=== PATIENT | female | born 1960 | race Caucasian/White ===

== ENCOUNTER 2022-07-11 17:52 | Emergency (ER) | payer MEDICARE, SELFPAY ==
--- NOTE | 2022-07-11 18:24 | ED_ITS ---
HPI - General Adult General Chief complaint: General Medical <Salena Warner CNP - Last Filed: 07/11/22 18:26> Stated complaint: elevated blood pressure sent from urgent care <Salena Warner CNP - Last Filed: 07/11/22 18:26> Time Seen by Provider: 07/11/22 21:39 <Salena Warner CNP - Last Filed: 07/11/22 18:26> Source: patient <Andrew Varela MD - Last Filed: 07/11/22 23:18> Mode of arrival: ambulatory <Andrew Varela MD - Last Filed: 07/11/22 23:18> Limitations: no limitations <Andrew Varela MD - Last Filed: 07/11/22 23:18> History of Present Illness HPI narrative: Patient with history of hypertension on lisinopril 40 mg for a while noticed her blood pressure on the higher side for last few times today was not feeling good with dizziness went to urgent care center blood pressure noted to be 187/87 in the ER patient blood pressure elevated to 194/92 patient is fairly compliant taking her medications every day <Andrew Varela MD - Last Filed: 07/11/22 23:18> Related Data Home medications: Previous Rx's Medication Instructions Recorded amlodipine 5 mg tablet (Norvasc) 5 mg PO DAILY #30 tabs 07/11/22 <Salena Warner CNP - Last Filed: 07/11/22 18:26> Allergies/adverse reactions: Allergies Allergy/AdvReac Type Severity Reaction Status Date / Time No Known Allergies Allergy Verified 07/11/22 18:24 <Salena Warner CNP - Last Filed: 07/11/22 18:26> Review of Systems Review of Systems: Yes all other systems are reviewed and are negative <Andrew Varela MD - Last Filed: 07/11/22 23:18> PMFSH Past Medical History Medical History: Medical History Accelerated essential hypertension Acid reflux <Salena Warner CNP - Last Filed: 07/11/22 18:26> Social History Social History: Social History Smoked in Last 30 Days: No Use of substances other than those prescribed or required for medical reasons: No Advance Directives: No Advance Directives Information Provided: No Patient : No <Salena Warner AMBIKA - Last Filed: 07/11/22 18:26> Physical Exam ED Vital Signs: Vital Signs - 24 hr 07/11/22 18:25 07/11/22 21:53 07/11/22 22:00 Temperature 98.4 F Pulse Rate 92 95 Respiratory Rate 18 20 Blood Pressure 187/87 H 194/92 H 181/93 H Pulse Oximetry 100 99 Oxygen Delivery Method Room Air Room Air 07/11/22 23:02 Temperature Pulse Rate 67 Respiratory Rate 12 Blood Pressure 140/65 H Pulse Oximetry 98 Oxygen Delivery Method Room Air BMI result Body Mass Index 40.9 <Salena Warner AMBIKA - Last Filed: 07/11/22 18:26> Vital Signs - 24 hr 07/11/22 18:25 07/11/22 21:53 07/11/22 22:00 Temperature 98.4 F Pulse Rate 92 95 Respiratory Rate 18 20 Blood Pressure 187/87 H 194/92 H 181/93 H Pulse Oximetry 100 99 Oxygen Delivery Method Room Air Room Air 07/11/22 23:02 Temperature Pulse Rate 67 Respiratory Rate 12 Blood Pressure 140/65 H Pulse Oximetry 98 Oxygen Delivery Method Room Air BMI result Body Mass Index 40.9 Appearance: Alert. Oriented X3. No acute distress. Eyes: PERRLA, No Nystagmus ENT: Pharynx normal. Oral Mucosa moist Neck: Normal inspection. Neck supple. CVS: Normal heart rate and rhythm. Pulses normal. Respiratory: No respiratory distress. Equal air entry bilateral, no wheezing/rales/rhonchi Abdomen: Soft and nontender. Bowel sounds are present, no mass palpable, no CVA tenderness Skin: Skin warm and dry. Normal skin color. Normal skin turgor. Extremities: No lower extremity edema. No calf tenderness Neuro: Oriented X 3. No motor deficit. No sensory deficit.No cerebellar signs , cranial nerves II-XII intact <Andrew Varela MD - Last Filed: 07/11/22 23:18> Course Course Course Narrative: This is an RME: Additional HPI, ROS, PE not included below will be deferred to primary provider. Patient is a 62-year-old female who presents emergency department with referral from urgent care. She presented initially for evaluation of dizziness/ lightheadedness a couple days ago. She had similar symptoms this morning, she is currently without any dizziness or complaints. She presented to urgent care today for evaluation, was found to have elevated blood pressure therefore referred to the ED. she is currently prescribed lisinopril 40 mg daily. Denies current dizziness, persistent headaches, vision changes, neck pain, neck stiffness, chest pain, shortness breath, difficulty breathing, nausea, vomiting, ABD pain. Plan: labs, EKG <Salena Warner CNP - Last Filed: 07/11/22 18:26> Medications Administered Discontinued Medications Generic Name Dose Route Start Last Admin Trade Name Freq PRN Reason Stop Dose Admin Amlodipine Besylate 5 mg 07/11/22 21:56 07/11/22 22:11 Amlodipine Besylate 5 Mg Tablet PO 07/11/22 21:57 5 mg ONCE ONE Administration Protocol <Salena Warner CNP - Last Filed: 07/11/22 18:26> Medications Administered Discontinued Medications Generic Name Dose Route Start Last Admin Trade Name Freq PRN Reason Stop Dose Admin Amlodipine Besylate 5 mg 07/11/22 21:56 07/11/22 22:11 Amlodipine Besylate 5 Mg Tablet PO 07/11/22 21:57 5 mg ONCE ONE Administration Protocol <Andrew Varela MD - Last Filed: 07/11/22 23:18> Medical Decision Making Medical Decision Making [facility] Narrative: Patient with uncontrolled hypertension Norvasc 5 mg was given blood pressure improved to 140/65 there is no end-organ damage when he just patient feeling much better will discharge patient home <Andrew Varela MD - Last Filed: 07/11/22 23:18> Lab Data [facility] Lab Attestation statement: I reviewed the patient's lab results. <Andrew Varela MD - Last Filed: 07/11/22 23:18> Result Diagrams: 07/11/22 18:59 07/11/22 18:59 <Salena Warner CNP - Last Filed: 07/11/22 18:26> Labs: Lab Results 07/11/22 07/11/22 07/11/22 Range/Units 18:59 18:59 18:59 WBC 9.1 (4.8-10.8) X10*3/uL RBC 4.83 (4.20-5.50) X10*6/uL Hgb 13.9 (12.0-16.0) g/dl Hct 40.8 (37.0-47.0) % MCV 84.5 (80.0-98.0) fL MCH 28.8 (27.0-33.0) pg MCHC 34.1 (31.0-35.0) g/dl RDW 13.0 (11.0-16.0) % Plt Count 244 (160-400) X10*3/uL MPV 12.0 (9.4-12.3) fL Immature Gran % (Auto) 0.2 (0.0-0.4) % Neut % (Auto) 64.2 (45-73) % Lymph % (Auto) 28.8 (20-40) % [place] % (Auto) 5.7 (2-11) % Eos % (Auto) 0.7 (0-4) % Baso % (Auto) 0.4 (0-2) % Lymph # (Auto) 2.6 (1.2-4.9) X10*3/uL [place] # (Auto) 0.5 (0.1-1.2) X10*3/uL Eos # (Auto) 0.1 (0.0-0.4) X10*3/uL Baso # (Auto) 0.0 (0.0-0.2) X10*3/uL Abs Immat Gran (auto) 0.02 (0.00-0.03) X10*3/uL Absolute Neuts (auto) 5.8 (2.0-8.3) x10*3/uL Absolute Nucleated RBC 0.000 (0.0-0.012) X10*3/uL Nucleated RBC % (auto) 0.0 (0.0-0.2) /100WBC Sodium 144 (135-145) mmol/L Potassium 4.4 (3.3-5.1) mmol/L Chloride 106 (96-108) mmol/L Carbon Dioxide 25 (22-29) mmol/L Anion Gap 17 (12-20) BUN 17 H (9-16) mg/dL Creatinine 0.99 (0.5-1.4) mg/dL Estim Creat Clear Calc 66.6 Estimated GFR 57 Random Glucose 94 (60-115) mg/dL Calcium 10.1 (8.4-10.2) mg/dL Total Bilirubin 0.6 (0.0-1.0) mg/dL AST 27 (5-31) U/L ALT 24 (0-31) U/L Alkaline Phosphatase 70 (39-117) U/L Troponin I High Sens < 3.5 (<3.5-17.0) ng/L Total Protein 7.1 (6.5-8.0) g/dL Albumin 4.6 (3.5-5.0) g/dL <Salena Warner, [employer] - Last Filed: 07/11/22 18:26> Lab Results 07/11/22 07/11/22 07/11/22 Range/Units 18:59 18:59 18:59 WBC 9.1 (4.8-10.8) X10*3/uL RBC 4.83 (4.20-5.50) X10*6/uL Hgb 13.9 (12.0-16.0) g/dl Hct 40.8 (37.0-47.0) % MCV 84.5 (80.0-98.0) fL MCH 28.8 (27.0-33.0) pg MCHC 34.1 (31.0-35.0) g/dl RDW 13.0 (11.0-16.0) % Plt Count 244 (160-400) X10*3/uL MPV 12.0 (9.4-12.3) fL Immature Gran % (Auto) 0.2 (0.0-0.4) % Neut % (Auto) 64.2 (45-73) % Lymph % (Auto) 28.8 (20-40) % [place] % (Auto) 5.7 (2-11) % Eos % (Auto) 0.7 (0-4) % Baso % (Auto) 0.4 (0-2) % Lymph # (Auto) 2.6 (1.2-4.9) X10*3/uL [place] # (Auto) 0.5 (0.1-1.2) X10*3/uL Eos # (Auto) 0.1 (0.0-0.4) X10*3/uL Baso # (Auto) 0.0 (0.0-0.2) X10*3/uL Abs Immat Gran (auto) 0.02 (0.00-0.03) X10*3/uL Absolute Neuts (auto) 5.8 (2.0-8.3) x10*3/uL Absolute Nucleated RBC 0.000 (0.0-0.012) X10*3/uL Nucleated RBC % (auto) 0.0 (0.0-0.2) /100WBC Sodium 144 (135-145) mmol/L Potassium 4.4 (3.3-5.1) mmol/L Chloride 106 (96-108) mmol/L Carbon Dioxide 25 (22-29) mmol/L Anion Gap 17 (12-20) BUN 17 H (9-16) mg/dL Creatinine 0.99 (0.5-1.4) mg/dL Estim Creat Clear Calc 66.6 Estimated GFR 57 Random Glucose 94 (60-115) mg/dL Calcium 10.1 (8.4-10.2) mg/dL Total Bilirubin 0.6 (0.0-1.0) mg/dL AST 27 (5-31) U/L ALT 24 (0-31) U/L Alkaline Phosphatase 70 (39-117) U/L Troponin I High Sens < 3.5 (<3.5-17.0) ng/L Total Protein 7.1 (6.5-8.0) g/dL Albumin 4.6 (3.5-5.0) g/dL <Andrew Varela MD - Last Filed: 07/11/22 23:18> Independent Interpretation I performed an independent interpretation of an: EKG <Andrew Varela MD - Last Filed: 07/11/22 23:18> Interpretation: Normal sinus rhythm heart rate 88 beats per minute normal intervals no acute ST changes no acute ischemic <Andrew Varela MD - Last Filed: 07/11/22 23:18> Discharge Plan Discharge Clinical Impression: Hypertension, uncontrolled <Salena Warner CNP - Last Filed: 07/11/22 18:26> Patient Disposition: Home, Self-Care <Salena Warner CNP - Last Filed: 07/11/22 18:26> Instructions: Chronic Hypertension (ED) <Salena Warner CNP - Last Filed: 07/11/22 18:26> Additional Instructions: Continue your lisinopril Start taking Norvasc 5 mg for blood pressure control Your blood pressure should be less than 135/85 Follow with your PCP <Salena Warner CNP - Last Filed: 07/11/22 18:26> Prescriptions: New amlodipine [Norvasc] 5 mg tablet 5 mg PO DAILY Qty: 30 0RF <Salena Warner CNP - Last Filed: 07/11/22 18:26>
[2022-07-11 18:25] VITALS: BP 187/87; PULSE 92; RESP 18; TEMP 36.9; O2SAT 100; BMI 40.9
--- NOTE | 2022-07-11 18:26 | ECG_ITS ---
Test Reason : HYPERTENSION Blood Pressure : / mmHG Vent. Rate : 088 BPM Atrial Rate : 088 BPM P-R Int : 160 ms QRS Dur : 074 ms QT Int : 358 ms P-R-T Axes : 012 006 006 degrees QTc Int : 433 ms Normal sinus rhythm Inferior infarct , age undetermined Abnormal ECG No previous ECGs available Referred By: Salena Warner Electronically Signed By:EFFIE OWENS MD
[2022-07-11 19:05] LABS: MANUAL DIFF FLAG NO
[2022-07-11 19:14] LABS: Basophils Percent Auto 0.4 % (0-2); Eosinophils Absolute Auto 0.1 X10*3/uL (0.0-0.4); Eosinophils Percent Auto 0.7 % (0-4); Hematocrit 40.8 % (37.0-47.0); Hemoglobin 13.9 g/dl (12.0-16.0); Imm Gran Abs Auto 0.02 X10*3/uL (0.00-0.03); Imm Gran Pct Auto 0.2 % (0.0-0.4); Lymphocytes Absolute Auto 2.6 X10*3/uL (1.2-4.9); Lymphocytes Percent Auto 28.8 % (20-40); Mean Corpuscular HGB Conc 34.1 g/dl (31.0-35.0); Mean Corpuscular Hemoglobin 28.8 pg (27.0-33.0); Mean Corpuscular Volume 84.5 fL (80.0-98.0); Monocytes Absolute Auto 0.5 X10*3/uL (0.1-1.2); Monocytes Percent Auto 5.7 % (2-11); Neutrophils Absolute Auto 5.8 x10*3/uL (2.0-8.3); Neutrophils Percent Auto 64.2 % (45-73); Platelet Count 244 X10*3/uL (160-400); Red Blood Count 4.83 X10*6/uL (4.20-5.50); White Blood Count 9.1 X10*3/uL (4.8-10.8)
[2022-07-11 19:21] LABS: Alanine Aminotransferase 24 U/L (0-31); Albumin Level 4.6 g/dL (3.5-5.0); Alkaline Phosphatase 70 U/L (39-117); Anion Gap 17 (12-20); Aspartate Amino Transferase 27 U/L (5-31); Bilirubin Total 0.6 mg/dL (0.0-1.0); Blood Urea Nitrogen 17 mg/dL (9-16); Calcium 10.1 mg/dL (8.4-10.2); Carbon Dioxide 25 mmol/L (22-29); Chloride 106 mmol/L (96-108); Creatinine Clr Calc Pharmacy 66.6; Estimated Glomerular Filt Rate 57; Glucose Random 94 mg/dL (60-115); Potassium 4.4 mmol/L (3.3-5.1); Sodium 144 mmol/L (135-145); Total Protein 7.1 g/dL (6.5-8.0)
[2022-07-11 19:32] LABS: Troponin-I High Sensitivity < 3.5 ng/L (<3.5-17.0)
--- NOTE | 2022-07-11 21:40 | PC.NURSE ---
pt AOx4, ambulates safely/independently, placed on bus monitor
--- NOTE | 2022-07-11 21:41 | PC.NURSE ---
pt changed into hospital attire
[2022-07-11 21:53] VITALS: BP 194/92; PULSE 95; RESP 20; O2SAT 99
[2022-07-11 22:00] VITALS: BP 181/93
--- NOTE | 2022-07-11 22:01 | PC.NURSE ---
pt denies pain, denies dizziness, states feeling light headedness, vs assessed aside from hbp of 181/93, vs stable pt education on monitoring bp and logging bp
[2022-07-11] MEDS: amLODIPine Besylate 5 MG TABLET PO (22:11)
[2022-07-11 23:02] VITALS: BP 140/65; PULSE 67; RESP 12; O2SAT 98
--- NOTE | 2022-07-11 23:03 | PC.NURSE ---
bp assessed after norvasc admin- 140/65; Dr Chandler notified
--- NOTE | 2022-07-11 23:18 | PC.NURSE ---
discharge instrucions given/explained; pt ambulates safely/independently; no apparent distress; pt alert and oriented; all of patient's questions answered
[2022-07-11 23:21] VITALS: BP 136/64; PULSE 68; RESP 15; O2SAT 98
== END 2022-07-11 23:17 | disposition home or self-care (01) ==
PROVIDERS: Nurse Practitioner Family; Emergency Provider Internal Medicine; PCP Internal Medicine
DX: I10 Essential (primary) hypertension (principal)
CPT/HCPCS: 36415; 80053; 84484; 85025; 93005; 99283; 99284

== ENCOUNTER 2022-09-22 18:19 | Emergency (ER) | payer MEDICARE, SELFPAY ==
--- NOTE | ~2022-09-22 | XR_ITS ---
EXAMINATION: XR CHEST CLINICAL INFORMATION: Palpitations COMPARISON: None available. TECHNIQUE: Frontal view of the chest was obtained. FINDINGS: No significant abnormality is noted involving the heart, lungs, mediastinum, bony thorax or soft tissues. Mild prominence of the ascending aorta. XR/XR chest 1V IMPRESSION: No acute intrathoracic disease.
--- NOTE | 2022-09-22 18:23 | ECG_ITS ---
Test Reason : PALPATATIONS Blood Pressure : / mmHG Vent. Rate : 088 BPM Atrial Rate : 088 BPM P-R Int : 168 ms QRS Dur : 078 ms QT Int : 364 ms P-R-T Axes : 026 000 -01 degrees QTc Int : 440 ms Normal sinus rhythm Inferior infarct (cited on or before 11-JUL-2022) Abnormal ECG When compared with ECG of 11-JUL-2022 18:51, No significant change was found Referred By: Richmond Fajardo Electronically Signed By:Branden Brown
[2022-09-22 18:25] VITALS: BP 192/74; PULSE 99; RESP 18; TEMP 36.8; O2SAT 99; BMI 40.9
--- NOTE | 2022-09-22 18:26 | ED.GENADULT ---
HPI - General Adult General Chief complaint: Arrhythmia/Palpitations <KAMALJIT Moore - Last Filed: 09/22/22 18:28> Stated complaint: Palpitations <KAMALJIT Moore - Last Filed: 09/22/22 18:28> Time Seen by Provider: 09/22/22 23:19 <KAMALJIT Moore - Last Filed: 09/22/22 18:28> Source: patient <Lizzy Coles MD - Last Filed: 09/23/22 00:40> Mode of arrival: ambulatory <Lizzy Coles MD - Last Filed: 09/23/22 00:40> History of Present Illness HPI narrative: 62-year-old female with history hypertension presents with development of palpitations after eating dinner this evening but states that she has experienced these intermittently over the past several days. She denies any association with shortness of breath or caffeine intake. Patient does endorse that she recently has had additional blood pressure medication added on. She denies any associated neurologic symptoms such as visual/speech/motor weakness. <Lizzy Coles MD - Last Filed: 09/23/22 00:40> Related Data Home medications: Previous Rx's Medication Instructions Recorded amlodipine 5 mg tablet (Norvasc) 5 mg PO DAILY #30 tabs 07/11/22 <KAMALJIT Moore - Last Filed: 09/22/22 18:28> Allergies/adverse reactions: Allergies Allergy/AdvReac Type Severity Reaction Status Date / Time No Known Allergies Allergy Verified 07/11/22 18:24 <KAMALJIT Moore - Last Filed: 09/22/22 18:28> Review of Systems Review of Systems: Pertinent positives and negatives as stated in HPI <Lizzy Coles MD - Last Filed: 09/23/22 00:40> PMFSH Past Medical History Source: nursing notes reviewed <Lizzy Coles MD - Last Filed: 09/23/22 00:40> Medical History: Medical History Accelerated essential hypertension Acid reflux <KAMALJIT Moore - Last Filed: 09/22/22 18:28> Social History Social History: Social History Advance Directives: No Advance Directives Information Provided: Yes <KAMALJIT Moore - Last Filed: 09/22/22 18:28> Physical Exam ED Vital Signs: Vital Signs - 24 hr 09/22/22 18:25 09/22/22 23:59 Temperature 98.2 F Pulse Rate 99 98 Respiratory Rate 18 20 Blood Pressure 192/74 H 178/82 H Pulse Oximetry 99 98 Oxygen Delivery Method Room Air Room Air BMI result Body Mass Index 40.9 <KAMALJIT Moore - Last Filed: 09/22/22 18:28> Vital Signs - 24 hr 09/22/22 18:25 09/22/22 23:59 Temperature 98.2 F Pulse Rate 99 98 Respiratory Rate 18 20 Blood Pressure 192/74 H 178/82 H Pulse Oximetry 99 98 Oxygen Delivery Method Room Air Room Air BMI result Body Mass Index 40.9 VITAL SIGNS: Reviewed. GENERAL: Well developed, well nourished, in no acute distress. HEAD: Normocephalic/atraumatic EYES: PERRLA, EOMI EARS: Ext canals without abnormality NOSE: Nares patent bilateral OROPHARYNX: no oral lesions noted, posterior pharynx clear NECK: Supple, no adenopathy LUNGS: Normal breath sounds. No adventitious sounds or accessory muscle use. SpO2<98> CARDIOVASCULAR: Regular rate and rhythm without noted murmurs, no JVD or lower extremity edema. ABDOMEN: Soft, non-tender, non-distended with bowel sounds. MUSCULOSKELETAL: No tenderness, deformities, or effusions noted on gross inspection. EXTREMITIES: No cyanosis, clubbing or edema. SKIN: Inspection of the skin reveals no rashes NEUROLOGIC: Alert and oriented x 4. Strength and sensation to light touch were grossly intact x 4. <Lizzy Coles MD - Last Filed: 09/23/22 00:40> Course Course Course Narrative: This is an RME: Additional HPI, ROS, PE not included below will be deferred to primary provider. 62-year-old female History of hypertension presents to the emergency department with intermittent palpitations with a past few days worsening today, unable to tell me what makes them better worse, reports mild chest discomfort. Denies anxiety. no history of DVT or PE, denies long travel, not a smoker. Physical exam benign. Physical exam benign. Patient is saturating 99% on room air, heart rate of 94. Patient well appearing, nontoxic. Plan labs, imaging, troponin, EKG. <KAMALJIT Moore - Last Filed: 09/22/22 18:28> Medical Decision Making Medical Decision Making MDM Narrative: 62-year-old female with history of hypertension and clinical exam is benign in nature, I reviewed all investigations in my interpretation is that these are likely benign palpitations that according to patient's history do not appear to be associated with caffeine intake or exercise. Patient's blood pressure still remains significantly elevated and she is encouraged to follow-up with her primary care doctor. Patient is otherwise discharged home in stable condition. <Lizzy Coles MD - Last Filed: 09/23/22 00:40> Differential Diagnosis Please see the discussion above <Lizzy Coles MD - Last Filed: 09/23/22 00:40> Lab Data Please see the discussion above <Lizzy Coles MD - Last Filed: 09/23/22 00:40> Result Diagrams: 09/22/22 18:39 09/22/22 18:39 <KAMALJIT Moore - Last Filed: 09/22/22 18:28> Labs: Lab Results 09/22/22 09/22/22 09/22/22 Range/Units 18:39 18:39 18:39 WBC 9.5 (4.8-10.8) X10*3/uL RBC 4.30 (4.20-5.50) X10*6/uL Hgb 12.8 (12.0-16.0) g/dl Hct 36.7 L (37.0-47.0) % MCV 85.3 (80.0-98.0) fL MCH 29.8 (27.0-33.0) pg MCHC 34.9 (31.0-35.0) g/dl RDW 13.1 (11.0-16.0) % Plt Count 236 (160-400) X10*3/uL MPV 12.3 (9.4-12.3) fL Immature Gran % (Auto) 0.3 (0.0-0.4) % Neut % (Auto) 54.3 (45-73) % Lymph % (Auto) 36.8 (20-40) % [place] % (Auto) 6.1 (2-11) % Eos % (Auto) 2.1 (0-4) % Baso % (Auto) 0.4 (0-2) % Lymph # (Auto) 3.5 (1.2-4.9) X10*3/uL [place] # (Auto) 0.6 (0.1-1.2) X10*3/uL Eos # (Auto) 0.2 (0.0-0.4) X10*3/uL Baso # (Auto) 0.0 (0.0-0.2) X10*3/uL Abs Immat Gran (auto) 0.03 (0.00-0.03) X10*3/uL Absolute Neuts (auto) 5.1 (2.0-8.3) x10*3/uL Absolute Nucleated RBC 0.000 (0.0-0.012) X10*3/uL Nucleated RBC % (auto) 0.0 (0.0-0.2) /100WBC Sodium 141 (135-145) mmol/L Potassium 3.9 (3.3-5.1) mmol/L Chloride 106 (96-108) mmol/L Carbon Dioxide 24 (22-29) mmol/L Anion Gap 15 (12-20) BUN 15 (9-16) mg/dL Creatinine 1.16 (0.5-1.4) mg/dL Estim Creat Clear Calc 56.8 Estimated GFR 47 Random Glucose 93 (60-115) mg/dL Calcium 9.4 D (8.4-10.2) mg/dL Magnesium 1.7 (1.6-2.6) mg/dL Total Bilirubin 0.6 (0.0-1.0) mg/dL AST 25 (5-31) U/L ALT 24 (0-31) U/L Alkaline Phosphatase 68 (39-117) U/L Troponin I High Sens < 2.7 (<3.5-17.0) ng/L B-Natriuretic Peptide (<100) pg/mL Total Protein 6.5 (6.5-8.0) g/dL Albumin 4.3 (3.5-5.0) g/dL COVID-19 (REX) (Negative) COVID-19 Clin Com 09/22/22 09/22/22 Range/Units 18:39 18:39 WBC (4.8-10.8) X10*3/uL RBC (4.20-5.50) X10*6/uL Hgb (12.0-16.0) g/dl Hct (37.0-47.0) % MCV (80.0-98.0) fL MCH (27.0-33.0) pg MCHC (31.0-35.0) g/dl RDW (11.0-16.0) % Plt Count (160-400) X10*3/uL MPV (9.4-12.3) fL Immature Gran % (Auto) (0.0-0.4) % Neut % (Auto) (45-73) % Lymph % (Auto) (20-40) % [place] % (Auto) (2-11) % Eos % (Auto) (0-4) % Baso % (Auto) (0-2) % Lymph # (Auto) (1.2-4.9) X10*3/uL [place] # (Auto) (0.1-1.2) X10*3/uL Eos # (Auto) (0.0-0.4) X10*3/uL Baso # (Auto) (0.0-0.2) X10*3/uL Abs Immat Gran (auto) (0.00-0.03) X10*3/uL Absolute Neuts (auto) (2.0-8.3) x10*3/uL Absolute Nucleated RBC (0.0-0.012) X10*3/uL Nucleated RBC % (auto) (0.0-0.2) /100WBC Sodium (135-145) mmol/L Potassium (3.3-5.1) mmol/L Chloride (96-108) mmol/L Carbon Dioxide (22-29) mmol/L Anion Gap (12-20) BUN (9-16) mg/dL Creatinine (0.5-1.4) mg/dL Estim Creat Clear Calc Estimated GFR Random Glucose (60-115) mg/dL Calcium (8.4-10.2) mg/dL Magnesium (1.6-2.6) mg/dL Total Bilirubin (0.0-1.0) mg/dL AST (5-31) U/L ALT (0-31) U/L Alkaline Phosphatase (39-117) U/L Troponin I High Sens (<3.5-17.0) ng/L B-Natriuretic Peptide 25 (<100) pg/mL Total Protein (6.5-8.0) g/dL Albumin (3.5-5.0) g/dL COVID-19 (REX) Negative (Negative) COVID-19 Clin Com See Note <KAMALJIT Moore - Last Filed: 09/22/22 18:28> Lab Results 09/22/22 09/22/22 09/22/22 Range/Units 18:39 18:39 18:39 WBC 9.5 (4.8-10.8) X10*3/uL RBC 4.30 (4.20-5.50) X10*6/uL Hgb 12.8 (12.0-16.0) g/dl Hct 36.7 L (37.0-47.0) % MCV 85.3 (80.0-98.0) fL MCH 29.8 (27.0-33.0) pg MCHC 34.9 (31.0-35.0) g/dl RDW 13.1 (11.0-16.0) % Plt Count 236 (160-400) X10*3/uL MPV 12.3 (9.4-12.3) fL Immature Gran % (Auto) 0.3 (0.0-0.4) % Neut % (Auto) 54.3 (45-73) % Lymph % (Auto) 36.8 (20-40) % [place] % (Auto) 6.1 (2-11) % Eos % (Auto) 2.1 (0-4) % Baso % (Auto) 0.4 (0-2) % Lymph # (Auto) 3.5 (1.2-4.9) X10*3/uL [place] # (Auto) 0.6 (0.1-1.2) X10*3/uL Eos # (Auto) 0.2 (0.0-0.4) X10*3/uL Baso # (Auto) 0.0 (0.0-0.2) X10*3/uL Abs Immat Gran (auto) 0.03 (0.00-0.03) X10*3/uL Absolute Neuts (auto) 5.1 (2.0-8.3) x10*3/uL Absolute Nucleated RBC 0.000 (0.0-0.012) X10*3/uL Nucleated RBC % (auto) 0.0 (0.0-0.2) /100WBC Sodium 141 (135-145) mmol/L Potassium 3.9 (3.3-5.1) mmol/L Chloride 106 (96-108) mmol/L Carbon Dioxide 24 (22-29) mmol/L Anion Gap 15 (12-20) BUN 15 (9-16) mg/dL Creatinine 1.16 (0.5-1.4) mg/dL Estim Creat Clear Calc 56.8 Estimated GFR 47 Random Glucose 93 (60-115) mg/dL Calcium 9.4 D (8.4-10.2) mg/dL Magnesium 1.7 (1.6-2.6) mg/dL Total Bilirubin 0.6 (0.0-1.0) mg/dL AST 25 (5-31) U/L ALT 24 (0-31) U/L Alkaline Phosphatase 68 (39-117) U/L Troponin I High Sens < 2.7 (<3.5-17.0) ng/L B-Natriuretic Peptide (<100) pg/mL Total Protein 6.5 (6.5-8.0) g/dL Albumin 4.3 (3.5-5.0) g/dL COVID-19 (REX) (Negative) COVID-19 Clin Com 09/22/22 09/22/22 Range/Units 18:39 18:39 WBC (4.8-10.8) X10*3/uL RBC (4.20-5.50) X10*6/uL Hgb (12.0-16.0) g/dl Hct (37.0-47.0) % MCV (80.0-98.0) fL MCH (27.0-33.0) pg MCHC (31.0-35.0) g/dl RDW (11.0-16.0) % Plt Count (160-400) X10*3/uL MPV (9.4-12.3) fL Immature Gran % (Auto) (0.0-0.4) % Neut % (Auto) (45-73) % Lymph % (Auto) (20-40) % [place] % (Auto) (2-11) % Eos % (Auto) (0-4) % Baso % (Auto) (0-2) % Lymph # (Auto) (1.2-4.9) X10*3/uL [place] # (Auto) (0.1-1.2) X10*3/uL Eos # (Auto) (0.0-0.4) X10*3/uL Baso # (Auto) (0.0-0.2) X10*3/uL Abs Immat Gran (auto) (0.00-0.03) X10*3/uL Absolute Neuts (auto) (2.0-8.3) x10*3/uL Absolute Nucleated RBC (0.0-0.012) X10*3/uL Nucleated RBC % (auto) (0.0-0.2) /100WBC Sodium (135-145) mmol/L Potassium (3.3-5.1) mmol/L Chloride (96-108) mmol/L Carbon Dioxide (22-29) mmol/L Anion Gap (12-20) BUN (9-16) mg/dL Creatinine (0.5-1.4) mg/dL Estim Creat Clear Calc Estimated GFR Random Glucose (60-115) mg/dL Calcium (8.4-10.2) mg/dL Magnesium (1.6-2.6) mg/dL Total Bilirubin (0.0-1.0) mg/dL AST (5-31) U/L ALT (0-31) U/L Alkaline Phosphatase (39-117) U/L Troponin I High Sens (<3.5-17.0) ng/L B-Natriuretic Peptide 25 (<100) pg/mL Total Protein (6.5-8.0) g/dL Albumin (3.5-5.0) g/dL COVID-19 (REX) Negative (Negative) COVID-19 Clin Com See Note <Lizzy Coles MD - Last Filed: 09/23/22 00:40> Independent Interpretation I performed an independent interpretation of an: EKG <Lizzy Coles MD - Last Filed: 09/23/22 00:40> Interpretation: Normal sinus rhythm, HR-88, no STEMI, NC/QRS/QTC are within normal limits. <Lizzy Coles MD - Last Filed: 09/23/22 00:40> Radiology Impression Radiologist Impression: My interpretation is in agreement with radiology's impression of the imaging studies. <Lizzy Coles MD - Last Filed: 09/23/22 00:40> Chronic Conditions Patient?s care impacted by: Hypertension <Lizzy Coles MD - Last Filed: 09/23/22 00:40> Discharge Plan Discharge Clinical Impression: Palpitations, Anxiety <KAMALJIT Moore - Last Filed: 09/22/22 18:28> Patient Disposition: Home, Self-Care <KAMALJIT Moore - Last Filed: 09/22/22 18:28> Instructions: Anxiety (ED), Heart Palpitations (ED) <KAMALJIT Moore - Last Filed: 09/22/22 18:28> Additional Instructions: 1. Resume all home medications. 2. Recommend that you should proceed with caution with any salt intake and/or use of NSAID medications such as ibuprofen, Motrin, Aleve as these can increase her blood pressure as well. 3. Recommend that you call your primary care provider in the morning to set up an appointment for re-evaluation and referral for Holter monitor for further evaluation of your palpitations. Return to the ER for any worsening of your symptoms. <KAMALJIT Moore - Last Filed: 09/22/22 18:28> Prescriptions: No Action amlodipine [Norvasc] 5 mg tablet 5 mg PO DAILY Qty: 30 0RF <KAMALJIT Moore - Last Filed: 09/22/22 18:28> Referrals: Taylor Edmond MD [Primary Care Provider] - <KAMALJIT Moore - Last Filed: 09/22/22 18:28>
[2022-09-22 18:44] LABS: MANUAL DIFF FLAG NO
[2022-09-22 18:54] LABS: Basophils Percent Auto 0.4 % (0-2); Eosinophils Absolute Auto 0.2 X10*3/uL (0.0-0.4); Eosinophils Percent Auto 2.1 % (0-4); Hematocrit 36.7 % (37.0-47.0); Hemoglobin 12.8 g/dl (12.0-16.0); Imm Gran Abs Auto 0.03 X10*3/uL (0.00-0.03); Imm Gran Pct Auto 0.3 % (0.0-0.4); Lymphocytes Absolute Auto 3.5 X10*3/uL (1.2-4.9); Lymphocytes Percent Auto 36.8 % (20-40); Mean Corpuscular HGB Conc 34.9 g/dl (31.0-35.0); Mean Corpuscular Hemoglobin 29.8 pg (27.0-33.0); Mean Corpuscular Volume 85.3 fL (80.0-98.0); Mean Platelet Volume 12.3 fL (9.4-12.3); Monocytes Absolute Auto 0.6 X10*3/uL (0.1-1.2); Monocytes Percent Auto 6.1 % (2-11); Neutrophils Absolute Auto 5.1 x10*3/uL (2.0-8.3); Neutrophils Percent Auto 54.3 % (45-73); Platelet Count 236 X10*3/uL (160-400); Red Cell Distribution Width 13.1 % (11.0-16.0); White Blood Count 9.5 X10*3/uL (4.8-10.8)
[2022-09-22 19:14] LABS: Alanine Aminotransferase 24 U/L (0-31); Albumin Level 4.3 g/dL (3.5-5.0); Alkaline Phosphatase 68 U/L (39-117); Anion Gap 15 (12-20); Aspartate Amino Transferase 25 U/L (5-31); Bilirubin Total 0.6 mg/dL (0.0-1.0); Blood Urea Nitrogen 15 mg/dL (9-16); Calcium 9.4 mg/dL (8.4-10.2); Carbon Dioxide 24 mmol/L (22-29); Chloride 106 mmol/L (96-108); Creatinine Clr Calc Pharmacy 56.8; Estimated Glomerular Filt Rate 47; Glucose Random 93 mg/dL (60-115); Magnesium 1.7 mg/dL (1.6-2.6); Potassium 3.9 mmol/L (3.3-5.1); Sodium 141 mmol/L (135-145); Total Protein 6.5 g/dL (6.5-8.0)
[2022-09-22 19:18] LABS: B Type Natriuretic Peptide 25 pg/mL (<100)
[2022-09-22 19:20] LABS: COVID-19 Test Negative (Negative); IDNOW Serial# BCCEAD1C
[2022-09-22 19:35] LABS: Troponin-I High Sensitivity < 2.7 ng/L (<3.5-17.0)
[2022-09-22 23:59] VITALS: BP 178/82; PULSE 98; RESP 20; O2SAT 98
[2022-09-23 00:47] VITALS: BP 144/67; PULSE 73; RESP 16; TEMP 36.8; O2SAT 99
== END 2022-09-23 00:50 | disposition home or self-care (01) ==
PROVIDERS: Physician Assistant; Emergency Provider Student in an Organized Health Care Education/Training Program; PCP Internal Medicine
DX: R00.2 Palpitations (principal); F41.9 Anxiety disorder, unspecified; I10 Essential (primary) hypertension; Z20.822 Contact with and (suspected) exposure to COVID-19
CPT/HCPCS: 71045; 80053; 83735; 83880; 84484; 85025; 87635; 93005; 99283; 99285

== ENCOUNTER 2023-07-26 19:20 | Emergency (ER) | payer MEDICARE, SELFPAY ==
--- NOTE | ~2023-07-26 | XR_ITS ---
EXAMINATION: XR CHEST CLINICAL INFORMATION: Palpitations COMPARISON: 09/22/2022 TECHNIQUE: Frontal view of the chest was obtained. FINDINGS: No significant abnormality is noted involving the heart, lungs, mediastinum, bony thorax or soft tissues. XR/XR chest 1V IMPRESSION: Unremarkable examination.
[2023-07-26 19:21] VITALS: BP 161/71; PULSE 89; RESP 18; TEMP 36.8; O2SAT 99; BMI 41.3
--- NOTE | 2023-07-26 19:22 | ECG_ITS ---
Test Reason : palpation Blood Pressure : / mmHG Vent. Rate : 086 BPM Atrial Rate : 086 BPM P-R Int : 166 ms QRS Dur : 078 ms QT Int : 348 ms P-R-T Axes : 025 010 022 degrees QTc Int : 416 ms Normal sinus rhythm Cannot rule out Anterior infarct , age undetermined Abnormal ECG When compared with ECG of 22-SEP-2022 18:32, Criteria for Inferior infarct are no longer Present Referred By: Richmond Fajardo Electronically Signed By:YANY PETERSON
--- NOTE | 2023-07-26 19:23 | ED_ITS ---
HPI - General Adult General Chief complaint: Arrhythmia/Palpitations Stated complaint: chest pain Time Seen by Provider: 07/26/23 23:57 Source: patient, RN notes reviewed and old records reviewed Mode of arrival: ambulatory Limitations: no limitations History of Present Illness HPI narrative: 63-year-old female presents for evaluation of chest pain. She reports the pain is off and on over the last few days. The pain is in the center of her chest. She has no associated symptoms including shortness of breath, palpitations, nausea vomiting abdominal pain. Her pain seems somewhat improved after eating Patient denies any history of cardiac disease. She reports a similar episode about a year ago? they did not find anything. ? She endorses somewhat increased stress due to a recent surgery that her had No other complaints or concerns at this time She also denies any recent travel Related Data Previous Rx's Medication Instructions Recorded amlodipine 5 mg tablet (Norvasc) 5 mg PO DAILY #30 tabs 07/11/22 Allergies Allergy/AdvReac Type Severity Reaction Status Date / Time No Known Allergies Allergy Verified 07/11/22 18:24 Review of Systems 2 Constitutional: Constitutional: Denies chills and Denies fever(s) Eyes: Eyes: Denies blurry vision Cardiovascular: Cardiovascular: Reports chest pain and Denies dyspnea Respiratory: Respiratory: Denies cough and Denies dyspnea Gastrointestinal: Gastrointestinal: Denies abdominal pain, Denies nausea and Denies vomiting Musculoskeletal: Musculoskeletal: Denies back pain Integumentary/Breasts: Skin/Breast: Denies rash Psychiatric: Psychiatric: Denies panic attacks PMFSH Past Medical History Medical History Accelerated essential hypertension Acid reflux Social History Social History Advance Directives: No Advance Directives Information Provided: No Physical Exam ED Vital Signs: Vital Signs - 24 hr 07/26/23 19:21 07/26/23 22:11 Temperature 98.2 F 98.1 F Pulse Rate 89 81 Respiratory Rate 18 18 Blood Pressure 161/71 H 151/77 H Pulse Oximetry 99 97 Oxygen Delivery Method Room Air Room Air BMI result Body Mass Index 41.3 Const General: healthy appearing, comfortable, no acute distress, alert and awake Nutritional Appearance: well nourished Orientation/consciousness: patient oriented x3 HENMT Head: Yes normocephalic and Yes atraumatic Eyes Eyelids: Yes eyelids normal Conjunctivae: conjunctivae normal Sclerae: sclerae normal Corneas: corneas normal Pupils: Equal, round and reactive pupils present EOM: EOMs intact bilaterally Neck Neck: Yes full ROM Resp Effort & Inspection: normal respiratory effort, able to speak in complete sentences and not labored Cardio Rate: regular rate Rhythm: regular rhythm GI Inspection: No distended Palpation (GI): Soft to palpation, not firm, nontender, no guarding and not rigid Skin General skin exam: elasticity normal Neuro General: patient oriented x3 Cranial nerves: Yes Equal, round and reactive pupils present and Yes Bilaterally intact EOM present Cognition (Neuro): normal cognition Extrem Other: Moving all extremities well without any obvious deformities Course Course Course Narrative: This is an RME: Additional HPI, ROS, PE not included below will be deferred to primary provider. Female history of hypertension presents with palpitations for the past few days intermittent nature. Today freaking her out. No shortness breath or associated chest pain. Plan at this time imaging, labs. Medical Decision Making Medical Decision Making [facility] Narrative: 63-year-old female presents for evaluation of chest pain. Her pain has been on and off for at least the last 3 days inotrope is negative so she rules out for ACS. She has no associated symptoms including nausea vomiting, cough, shortness of breath. Her chest x-ray was clear, EKG was nonischemic. Her pain is possibly musculoskeletal origin versus anxiety, she will be discharged to follow-up with her PCP Differential Diagnosis Differential Diagnoses: The differential diagnosis associated with the presentation includes Chest pain ACS Chest wall pain GERD Anxiety Lab Data [facility] Lab Attestation statement: I reviewed the patient's lab results. No leukocytosis or significant anemia. No electrolyte abnormalities. Unremarkable chemistries 07/26/23 19:42 07/26/23 19:42 Labs: Lab Results 07/26/23 Range/Units 19:42 WBC 8.9 (4.8-10.8) X10*3/uL RBC 4.33 (4.20-5.50) X10*6/uL Hgb 12.6 (12.0-16.0) g/dl Hct 36.7 L (37.0-47.0) % MCV 84.8 (80.0-98.0) fL MCH 29.1 (27.0-33.0) pg MCHC 34.3 (31.0-35.0) g/dl RDW 12.8 (11.0-16.0) % Plt Count 209 (160-400) X10*3/uL MPV 11.6 (9.4-12.3) fL Immature Gran % (Auto) 0.3 (0.0-0.4) % Neut % (Auto) 52.7 (45-73) % Lymph % (Auto) 36.8 (20-40) % Frontier % (Auto) 7.2 (2-11) % Eos % (Auto) 2.6 (0-4) % Baso % (Auto) 0.4 (0-2) % Lymph # (Auto) 3.3 (1.2-4.9) X10*3/uL Frontier # (Auto) 0.6 (0.1-1.2) X10*3/uL Eos # (Auto) 0.2 (0.0-0.4) X10*3/uL Baso # (Auto) 0.0 (0.0-0.2) X10*3/uL Abs Immat Gran (auto) 0.03 (0.00-0.03) X10*3/uL Absolute Neuts (auto) 4.7 (2.0-8.3) x10*3/uL Absolute Nucleated RBC 0.000 (0.0-0.012) X10*3/uL Nucleated RBC % (auto) 0.0 (0.0-0.2) /100WBC PT 12.3 (11.1-13.3) SEC INR 1.0 (0.9-1.1) Sodium 138 (135-145) mmol/L Potassium 4.0 (3.3-5.1) mmol/L Chloride 103 (96-108) mmol/L Carbon Dioxide 23 (22-29) mmol/L Anion Gap 16 (12-20) BUN 15 (9-16) mg/dL Creatinine 1.08 (0.5-1.4) mg/dL Estim Creat Clear Calc 60.5 Estimated GFR 51 Random Glucose 120 H (60-115) mg/dL Calcium 10.1 D (8.4-10.2) mg/dL Magnesium 1.8 (1.6-2.6) mg/dL Total Bilirubin 0.4 (0.0-1.0) mg/dL AST 24 (5-31) U/L ALT 21 (0-31) U/L Alkaline Phosphatase 75 (39-117) U/L Troponin I High Sens < 2.7 (<3.5-17.0) ng/L Total Protein 6.8 (6.5-8.0) g/dL Albumin 4.2 (3.5-5.0) g/dL Independent Interpretation I performed an independent interpretation of an: EKG (Normal sinus rhythm with a rate of [address] segment elevations or depressions) and Plain X- Ray (No infiltrates) Radiology Impression Discussion of test interpretation with radiology: I have reviewed the radiologist's reading. (Unremarkable exam) Discharge Plan Discharge Clinical Impression: Chest pain Patient Disposition: Home, Self-Care Instructions: Chest Pain (ED) Additional Instructions: Your workup in the ER today was reassuring. This includes your blood work, EKG and chest x-ray Follow-up with your primary doctor You may use Motrin/Tylenol Prescriptions: No Action amlodipine [Norvasc] 5 mg tablet 5 mg PO DAILY Qty: 30 0RF Interventions: ED Discharge Assessment Last Done: 07/27/23 00:28 Discharge Date/Time: 07/27/23 00:28
--- NOTE | 2023-07-26 19:44 | MHC.EDTECH ---
PATIENT EKG TAKEN AND WAS READ BY PROVIDER ,BLOOD DRAWN AND SENT TO LAB .
[2023-07-26 19:46] LABS: MANUAL DIFF FLAG NO
[2023-07-26 19:48] LABS: Basophils Percent Auto 0.4 % (0-2); Eosinophils Absolute Auto 0.2 X10*3/uL (0.0-0.4); Eosinophils Percent Auto 2.6 % (0-4); Hematocrit 36.7 % (37.0-47.0); Hemoglobin 12.6 g/dl (12.0-16.0); Imm Gran Abs Auto 0.03 X10*3/uL (0.00-0.03); Imm Gran Pct Auto 0.3 % (0.0-0.4); Lymphocytes Absolute Auto 3.3 X10*3/uL (1.2-4.9); Lymphocytes Percent Auto 36.8 % (20-40); Mean Corpuscular HGB Conc 34.3 g/dl (31.0-35.0); Mean Corpuscular Hemoglobin 29.1 pg (27.0-33.0); Mean Corpuscular Volume 84.8 fL (80.0-98.0); Mean Platelet Volume 11.6 fL (9.4-12.3); Monocytes Absolute Auto 0.6 X10*3/uL (0.1-1.2); Monocytes Percent Auto 7.2 % (2-11); Neutrophils Absolute Auto 4.7 x10*3/uL (2.0-8.3); Neutrophils Percent Auto 52.7 % (45-73); Platelet Count 209 X10*3/uL (160-400); Red Blood Count 4.33 X10*6/uL (4.20-5.50); Red Cell Distribution Width 12.8 % (11.0-16.0); White Blood Count 8.9 X10*3/uL (4.8-10.8)
[2023-07-26 20:02] LABS: Prothrombin Time 12.3 SEC (11.1-13.3)
[2023-07-26 20:09] LABS: Alanine Aminotransferase 21 U/L (0-31); Albumin Level 4.2 g/dL (3.5-5.0); Alkaline Phosphatase 75 U/L (39-117); Anion Gap 16 (12-20); Aspartate Amino Transferase 24 U/L (5-31); Bilirubin Total 0.4 mg/dL (0.0-1.0); Blood Urea Nitrogen 15 mg/dL (9-16); Calcium 10.1 mg/dL (8.4-10.2); Carbon Dioxide 23 mmol/L (22-29); Chloride 103 mmol/L (96-108); Creatinine Clr Calc Pharmacy 60.5; Estimated Glomerular Filt Rate 51; Glucose Random 120 mg/dL (60-115); Magnesium 1.8 mg/dL (1.6-2.6); Sodium 138 mmol/L (135-145); Total Protein 6.8 g/dL (6.5-8.0)
[2023-07-26 20:19] LABS: Troponin-I High Sensitivity < 2.7 ng/L (<3.5-17.0)
[2023-07-26 22:11] VITALS: BP 151/77; PULSE 81; RESP 18; TEMP 36.7; O2SAT 97
== END 2023-07-27 00:28 | disposition home or self-care (01) ==
PROVIDERS: Physician Assistant; Emergency Provider Internal Medicine; PCP Internal Medicine
DX: I49.9 Cardiac arrhythmia, unspecified (principal); R07.89 Other chest pain; Z79.899 Other long term (current) drug therapy
CPT/HCPCS: 36415; 71045; 80053; 83735; 84484; 85025; 85610; 93005; 99283

== ENCOUNTER → 2023-07-26 19:22 | Outpatient (BNV) | payer MEDICARE, SELFPAY | PROVIDERS: Emergency Provider Internal Medicine; PCP Internal Medicine; Visit Provider Internal Medicine | DX: R94.31 Abnormal electrocardiogram [ECG] [EKG] (principal) | CPT/HCPCS: 93010 ==